=== PATIENT | male | born 1970 | race Caucasian/White ===

== ENCOUNTER 2023-04-25 03:49 | Emergency (ER) | payer SELFPAY ==
[~2023-04-25] VITALS: Ht 182 cm; Wt 81.6 kg
[2023-04-25] MEDS ORDERED: FAMOTIDINE 20 MG TABLET PO STA (04:02)
--- NOTE | 2023-04-25 04:02 | ED Chest Pain ---
General Stated Complaint: SOB|CHEST PAIN| VOMITING Source: patient Exam Limitations: no limitations History of Present Illness Date Seen by Provider: Apr 25, 2023 Time Seen by Provider: 03:52 Initial Comments 52-year-old male with no pertinent past medical history other than smoking coming in due to 20 hours of constant chest pain and shortness of breath. He states he is never had pain like this before, feels like he is just being hit in the center of his chest at times, often is just a burning pain. Denies any lower extremity swelling or pain, no DVT or PE history, no recent surgery, no hormone use, and no recent long travel. Has not taken anything for the pain. Does not take any medicines daily. Smokes about a pack of cigarettes a day for the past 30 years. He says he has had numerous episodes of nonbloody nonbilious vomiting today as well. He also endorses belching a lot. Denies any fever, diarrhea, rash, abdominal pain, weakness, numbness, headache, or any other concerns. Allergies and Home Medications Allergies Coded Allergies: No Known Drug Allergies (Unverified , 04/25/23) Patient Home Medication List Home Medication List Reviewed: Yes Ondansetron (Ondansetron Odt) 4 Mg Tab.rapdis, 4 MG SL Q6H PRN for NAUSEA/VOMITING Prescribed by: ALMA COELLO on 04/25/23 [id number] Review of Systems Review of Systems Constitutional: No fever EENTM: No Symptoms Reported Respiratory: See HPI Cardiovascular: See HPI Gastrointestinal: See HPI Genitourinary: No Symptoms Reported Musculoskeletal: no symptoms reported Skin: no symptoms reported Psychiatric/Neurological: No Symptoms Reported Endocrine: No Symptoms Reported Hematologic/Lymphatic: No Symptoms Reported Past Hjmwigo-Pcuuso-Nztdjc Hx Patient Social History Tobacco Use?: Yes Tobacco type used: Cigarettes Physical Exam Vital Signs Vital Signs - First Documented 04/25/23 03:51 Temp 36.0 Pulse 80 Resp 20 B/P (MAP) 127/75 (92) O2 Delivery Room Air Capillary Refill : Height, Weight, BMI Height: '" Weight: lbs. oz. kg; BMI Method: General Appearance: No Apparent Distress, WD/WN HEENT: PERRL/EOMI, Normal ENT Inspection, Pharynx Normal Neck: Full Range of Motion, Normal Inspection, Non Tender, Supple Respiratory: Chest Non Tender, Lungs Clear, Normal Breath Sounds, No Accessory Muscle Use, No Respiratory Distress Cardiovascular: Regular Rate, Rhythm, No Edema, Normal Peripheral Pulses Gastrointestinal: Normal Bowel Sounds, Non Tender, Soft; No Distended, No Guarding Extremity: Normal Capillary Refill, Normal Inspection, Normal Range of Motion, Non Tender, No Calf Tenderness, No Pedal Edema Neurologic/Psychiatric: Alert, No Motor/Sensory Deficits, Normal Mood/Affect Skin: Normal Color, Warm/Dry Progress/Results/Core Measures Results/Orders Lab Results Laboratory Tests Test 04/25/23 04:00 Range/Units White Blood Count 7.8 4.3-11.0 10^3/uL Red Blood Count 4.80 4.30-5.52 10^6/uL Hemoglobin 14.4 13.3-17.7 g/dL Hematocrit 44 40-54 % Mean Corpuscular Volume 91 80-99 fL Mean Corpuscular Hemoglobin 30 25-34 pg Mean Corpuscular Hemoglobin Concent 33 32-36 g/dL Red Cell Distribution Width 13.3 10.0-14.5 % Platelet Count 272 130-400 10^3/uL Mean Platelet Volume 9.5 9.0-12.2 fL Immature Granulocyte % (Auto) 0 % Neutrophils (%) (Auto) 66 42-75 % Lymphocytes (%) (Auto) 15 12-44 % Monocytes (%) (Auto) 15 H 0-12 % Eosinophils (%) (Auto) 3 0-10 % Basophils (%) (Auto) 1 0-10 % Neutrophils # (Auto) 5.2 1.8-7.8 10^3/uL Lymphocytes # (Auto) 1.2 1.0-4.0 10^3/uL Monocytes # (Auto) 1.2 H 0.0-1.0 10^3/uL Eosinophils # (Auto) 0.2 0.0-0.3 10^3/uL Basophils # (Auto) 0.0 0.0-0.1 10^3/uL Immature Granulocyte # (Auto) 0.0 0.0-0.1 10^3/uL My Orders Orders - ALMA COELLO MD Cbc And Automated Diff (04/25/23 04:01) Magnesium (04/25/23 04:01) Chest 1 View Ap/Pa Only (04/25/23 04:01) Ekg Tracing (04/25/23 04:01) Comprehensive Metabolic Panel (04/25/23 04:01) Protime With Inr (04/25/23 04:01) Partial Thromboplastin Time (04/25/23 04:01) O2 (04/25/23 04:01) Monitor-Rhythm Ecg Trace Only (04/25/23 04:01) Ed Iv/Invasive Line Start (04/25/23 04:01) Lipase (04/25/23 04:01) Troponin I Fs (04/25/23 04:01) Probnp Fs (04/25/23 04:01) Ondansetron Injection (Ondansetron Inj (04/25/23 04:15) Lidocaine 2% Viscous 15 Ml (Xylocaine Vi (04/25/23 04:15) Famotidine Tablet (Famotidine Tablet) (04/25/23 04:02) Antacid Suspension (Antacid Suspension (04/25/23 04:15) Aspirin Chewable Tablet (Aspirin Chewabl (04/25/23 04:15) Vital Signs/I&O 04/25/23 03:51 Temp 36.0 Pulse 80 Resp 20 B/P (MAP) 127/75 (92) O2 Delivery Room Air Progress Progress Note : Progress Note 52-year-old male with above history coming in due to vomiting, chest discomfort, and shortness of breath. ABCs were intact and vitals were stable on presen tation. Physical exam reassuring including clear lung sounds with no signs of wheezing, and no clinical signs of a DVT. EKG ordered and interpreted by me showing no acute ischemic changes. Chest x-ray ordered and interpreted by me showing no pneumothorax and normal cardiac silhouette. There is certainly no lobar pneumonia, but perhaps there is some perihilar opacities with no prior to compare to. We will prescription for azithromycin to his pharmacy to cover him just in case. An IV was placed and basic labs were obtained including cardiac biomarkers. These were significant for a normal hemoglobin, normal creatinine, negative troponin. ACS very unlikely given more than 20 hours of pain with a negative troponin. He is low risk for PE per Gladwin criteria and I think it is sufficiently ruled out. He does have some GI upset and some dyspepsia including epigastric burning. He was given a GI cocktail. Initial ECG Impression Date: Apr 25, 2023 Initial ECG Impression Time: 03:56 Initial ECG Rate: 71 Initial ECG Rhythm: Normal Sinus Comment Narrow QRS, normal axis, no significant ST changes or T wave abnormalities Diagnostic Imaging Diagonstic Imaging: Xray (chest) Departure Impression Primary Impression: Chest pain Qualified Codes: R07.82 - Intercostal pain Additional Impression: Dyspepsia Disposition: 01 HOME, SELF-CARE Condition: Stable Departure-Patient Inst. [place] [facility] [place]LOCAL PHYSICIAN (PCP) Primary Care Physician Patient Instructions: Chest Pain, Adult ED Add. Discharge Instructions: Fortunately there are no signs of life-threatening causes of chest pain including no signs of heart attack based on your work-up in the ER. This is likely a GI illness causing irritation of your esophagus which can feel a lot like a heart attack. Your lungs also sound nice and clear, but there is perhaps some early signs of infection on your chest x-ray. An antibiotic will be sent to your pharmacy that hopefully will help with your shortness of breath. Please follow back up with your regular doctor in the next few days if you are not feeling better. If you do not have a doctor, you can follow-up with [facility], their number is in this paperwork. Nausea medicines were sent to your pharmacy as well. Of course we do recommend you quitting smoking if you are able to as this will cause long-term effects including heart attacks and strokes in the long run. Scripts Doxycycline Hyclate (Doxycycline Hyclate) 100 Mg Tablet 100 MG PO BID for 7 Days, #14 TAB 0 Refills Prov: ALMA COELLO MD 04/25/23 Ondansetron (Ondansetron Odt) 4 Mg Tab.rapdis 4 MG SL Q6H PRN for NAUSEA/VOMITING for 5 Days, #20 TAB Prov: ALMA COELLO MD 04/25/23 Work/School Note: Family Work Note, Patient Received Medical Care In the Emergency Department On: Apr 25, 2023 Patient Will Be Able to Return to Work/School On: Apr 26, 2023 Work Release Form Date Seen in the Emergency Department: Apr 25, 2023 Return to Work: Apr 26, 2023 Restrictions: Return-No Vomiting(24hrs) ALMA COELLO MD Apr 25, 2023 04:02
[2023-04-25 04:07] LABS: BASOPHILS % (AUTO) 1 % (0-10); EOSINOPHILS # (AUTO) 0.2 10^3/uL (0.0-0.3); EOSINOPHILS % (AUTO) 3 % (0-10); HEMATOCRIT 44 % (40-54); HEMOGLOBIN 14.4 g/dL (13.3-17.7); LYMPHOCYTES # (AUTO) 1.2 10^3/uL (1.0-4.0); LYMPHOCYTES % (AUTO) 15 % (12-44); MEAN CORPUSCULAR HEMOGLOBIN 30 pg (25-34); MEAN CORPUSCULAR HGB CONC 33 g/dL (32-36); MEAN CORPUSCULAR VOLUME 91 fL (80-99); MEAN PLATELET VOLUME 9.5 fL (9.0-12.2); MONOCYTES # (AUTO) 1.2 10^3/uL (0.0-1.0); MONOCYTES % (AUTO) 15 % (0-12); NEUTROPHILS # (AUTO) 5.2 10^3/uL (1.8-7.8); NEUTROPHILS % (AUTO) 66 % (42-75); PLATELET COUNT 272 10^3/uL (130-400); WHITE BLOOD COUNT 7.8 10^3/uL (4.3-11.0)
[2023-04-25] MEDS ORDERED: ONDA4TAB11 SL (04:10)
[2023-04-25] MEDS ORDERED: DOXY100T2 PO (04:13)
[2023-04-25] MEDS ORDERED: ONDANSETRON INJECTION 4 MG/2 ML (SDV) IVP ONE (04:15)
[2023-04-25] MEDS ORDERED: ASPIRIN 81 MG CHEWABLE TABLET PO ONE (04:15)
[2023-04-25] MEDS ORDERED: ANTACID SUSPENSION 30 ML UDC PO ONE (04:15)
[2023-04-25] MEDS ORDERED: LIDOCAINE 2% VISCOUS 15 ML UDC PO ONE (04:15)
[2023-04-25] MEDS ORDERED: DroPERidol INJECTION 5 MG/2 ML (ED ONLY!) ONE (04:24)
[2023-04-25 04:25] LABS: ATYPICAL LYMPHOCYTES 1 %; EOSINOPHILS % (MANUAL) 5 %; LYMPHOCYTES % (MANUAL) 7 %; MONOCYTES % (MANUAL) 14 %; MYELOCYTES % 1 %; NEUTROPHILS % (MANUAL) 66 %; PLATELET ESTIMATE NORMAL; POTASSIUM 4.2 MMOL/L (3.6-5.0); RBC MORPH NORMAL; REACTIVE LYMPHOCYTES 6 %
[2023-04-25 04:26] LABS: TOXIC GRANULATION/VACUOLAZATIO 3+
[2023-04-25 04:28] LABS: INR 0.9 (0.8-1.4)
[2023-04-25] MEDS ORDERED: DroPERidol INJECTION 5 MG/2 ML (ED ONLY!) IV ONE (04:30)
[2023-04-25 04:36] LABS: BUN/CREATININE RATIO 13; CARBON DIOXIDE 19 MMOL/L (21-32); CHLORIDE 104 MMOL/L (98-107); GFR ESTIMATED 103; GLUCOSE 90 MG/DL (70-105); SODIUM 136 MMOL/L (135-145)
[2023-04-25 04:37] LABS: ALANINE AMINOTRANSFERASE 19 U/L (0-55); ALBUMIN 4.4 GM/DL (3.2-4.5); ALKALINE PHOSPHATASE 82 U/L (40-136); BILIRUBIN,TOTAL 0.5 MG/DL (0.1-1.0); CALCIUM 8.9 MG/DL (8.5-10.1); LIPASE 29 U/L (8-78); MAGNESIUM 2.3 MG/DL (1.6-2.4); TOTAL PROTEIN 7.2 GM/DL (6.4-8.2)
[2023-04-25 04:54] VITALS: BP 118/77
--- NOTE | 2023-04-25 08:04 | Diagnostic Imaging Report ---
EXAMINATION: Chest 1 view HISTORY: Chest pain. COMPARISON: None available. FINDINGS: The lung volumes are normal. No focal consolidation is seen. No large pleural effusion or pneumothorax is seen. The cardiomediastinal silhouette is normal in size and contour. No acute osseous abnormality is seen. IMPRESSION: 1. No acute pleuroparenchymal process. Dictated by: Dictated on workstation # [id number]
== END 2023-04-25 05:00 | disposition home or self-care (01) ==
LOC: ER FS 03:53
DX: R07.89 Other chest pain (principal); R06.00 Dyspnea, unspecified; F17.210 Nicotine dependence, cigarettes, uncomplicated
CPT/HCPCS: 36415; 71045; 80053; 83690; 83735; 83880; 84484; 85007; 85027; 85610; 85730; 93005; 93041; 96374; 96375